=== PATIENT | female | born 1980 | race Caucasian/White ===

== ENCOUNTER → 2019-04-21 | Outpatient (CLI) | payer OTHER ==
[~2019-04-21] MED LIST: ALPR.5 PO; ALPR1 PO; AMOX500 PO; BELPTAB PO; BIRTH CONTROL; CEPH500 PO; CODGUAEL PO; CYCL10 PO; HYDACE5 PO; IBUP800 PO; LIDO700A20 TOP; LORA.5 PO; MEDICAL MARIJUANA; MEDR150I IM; MUPI2TO TOP; NAPR550 PO; NUVARING; PRED10 PO; PROP60; Robaxin500 MG PO; SULTRIDS PO; TRAM50 PO; UNKNOWN BP MED; [UNRECOGNIZED DRUG - REMARK]
== END | disposition home or self-care (01) ==
LOC: LAB SHORT 09:55 → LAB 09:55 → EDSTATUS 10:46
DX: R10.9 Unspecified abdominal pain (principal)
CPT/HCPCS: 87015; 87045; 87046; 87177; 87205; 87209; 87899

== ENCOUNTER 2024-02-06 16:29 | Emergency (ER) | payer OTHER ==
[~2024-02-06] VITALS: Ht 162.6 cm; Wt 63.5 kg
[2024-02-06 17:04] VITALS: BP 171/97
[2024-02-06] MEDS ORDERED: Diphth,Pertuss(Acell),Tet Vac 0.5 ML VIAL IM ONE (17:05)
[2024-02-06] MEDS ORDERED: Amoxicillin/Clavulanate K 875 MG Tab PO ONE (17:20)
[2024-02-06] MEDS ORDERED: AMOCLA875 PO (18:22)
[2024-02-06] MEDS ORDERED: Ketorolac Tromethamine 15mg Vial IM ONE (18:25)
== END 2024-02-06 18:52 | disposition home or self-care (01) ==
LOC: ER 16:29
DX: S51.832A Puncture wound without foreign body of left forearm, initial encounter (principal); W54.0XXA Bitten by dog, initial encounter; Z79.899 Other long term (current) drug therapy; Z88.5 Allergy status to narcotic agent; Z88.8 Allergy status to other drugs, medicaments and biological substances
CPT/HCPCS: 73130; 90471; 90715; 96372; 99283-25; A9270; J1885